=== PATIENT | female | born 1985 | race Caucasian/White ===

== ENCOUNTER 2023-06-12 19:35 | Emergency (ER) | payer BC ==
[2023-06-12] MEDS ORDERED: diphenhydrAMINE 50 MG/ML SDV IVPUSH ONE (20:21)
[2023-06-12] MEDS ORDERED: methylPREDNISolone Sodium Succinate 125 MG/2 ML SDV IV ONE (20:21)
[2023-06-12] MEDS ORDERED: Famotidine 20 MG/2 ML SDV IVPUSH ONE (20:21)
[2023-06-12] MEDS ORDERED: EPINEPHrine 1 MG/ML SDV IM ONE ×2 (20:21→21:48)
[2023-06-12] MEDS ORDERED: Sodium Chloride 0.9% 1,000 ML IV SCH (20:30)
== END 2023-06-12 22:05 | disposition home or self-care (01) ==
LOC: JP.ED 19:35
DX: L50.9 Urticaria, unspecified (principal); Z88.1 Allergy status to other antibiotic agents; E78.00 Pure hypercholesterolemia, unspecified; E03.9 Hypothyroidism, unspecified; Z79.899 Other long term (current) drug therapy; Z91.041 Radiographic dye allergy status; Z79.84 Long term (current) use of oral hypoglycemic drugs; Z86.16 Personal history of COVID-19; Z90.49 Acquired absence of other specified parts of digestive tract; Z90.710 Acquired absence of both cervix and uterus; Z87.891 Personal history of nicotine dependence
CPT/HCPCS: 96361; 96372; 96374; 96375; 99283; J0171; J1200; J2930; J3490; J7030